=== PATIENT | female | born 1950 | race Caucasian/White ===

== ENCOUNTER → 2019-08-06 12:58 | Outpatient (CLI) | payer MEDICARE, SELFPAY ==
--- NOTE | 2019-08-06 13:11 | MRI_ITS ---
STUDY: MRI LUMBAR SPINE WITHOUT CONTRAST REASON FOR EXAM: Female, 68 years old. Radiculopathy. TECHNIQUE: Standardized fat and water weighted pulse sequences were obtained in the sagittal and axial planes. COMPARISON: None FINDINGS: T12-L1: Normal endplates. Normal disc height, hydration and morphology. Normal bilateral facet joints. Normal central canal and bilateral lateral recesses. Normal bilateral intervertebral neural foramina. Normal lumbar lordosis. There is no substantial scoliosis. Normal conus medullaris that terminates at the L1 level. L1-2: Small right para midline disc herniation impinging on the right L2 nerve root. Normal bilateral facet joints. Normal central canal and bilateral lateral recesses. Normal bilateral intervertebral neural foramina. L2-3: Endplate spondylosis. Decreased disc height and small circumferential disc bulge. Degenerative changes of the bilateral facet joints. Mild narrowing of the central canal and bilateral intervertebral neural foramina. L3-4: Endplate spondylosis. Decreased disc height and small circumferential disc bulge. Degenerative changes of the bilateral facet joints. Mild narrowing of the central canal and bilateral intervertebral neural foramina. L4-5: Endplate spondylosis. Decreased disc height and small circumferential disc bulge. Degenerative changes of the bilateral facet joints. Mild narrowing of the central canal and bilateral intervertebral neural foramina. L5-S1: Transition anomaly most likely represents sacralization of L5. There is rudimentary disc at L5-S1. Normal bilateral facet joints. Normal central canal and bilateral lateral recesses. Normal bilateral intervertebral neural foramina. Normal visualized sacral ala. Normal visualized paraspinous soft tissue structures. MRI/Spine Lumbar (Routine) IMPRESSION: Multilevel degenerative changes, as described above. Small right para midline disc herniation at L1-2 impinging on the right L2 nerve root. Electronically Signed: Patti Mitchell, at 7:54 EDT Tel , Service support ,
== END ==
PROVIDERS: Family Provider Physician Assistant; PCP Physician Assistant
DX: M54.16 Radiculopathy, lumbar region (principal)
CPT/HCPCS: 72148

== ENCOUNTER → 2022-10-29 | Outpatient (CLI) | payer MEDICARE, SELFPAY ==
--- NOTE | 2022-10-29 07:38 | MRI_ITS ---
HISTORY: Radiculopathy, extreme pain lower back down right leg, increased pain past 8 years TECHNIQUE: Multiplanar and multisequence MR images of the lumbar spine were obtained without intravenous contrast. 128 images. COMPARISON: 08/06/2019. FINDINGS: VERTEBRAE: Vertebral body heights maintained. Mild degenerative bone marrow endplate changes of L3-4, L4-5, and L5-S1. ALIGNMENT: No significant anterior or posterior subluxation. CONUS: Normal morphology and position of the conus medullaris at L1, consistent with the prior numbering of the lumbar spine. INTERVERTEBRAL DISCS: T12-L1: No significant posterior disc protrusion, central canal stenosis, or foraminal narrowing based on the sagittal images. L1-2, L2-3: No significant posterior disc protrusion, central canal stenosis, or foraminal narrowing. L3-4: Mild posterior disc bulge osteophyte complex with facet arthropathy resulting in minimal narrowing of the thecal sac and mild bilateral foraminal narrowing. L4-5: Mild disc bulge eccentric to the left with facet arthropathy resulting in mild central canal stenosis and mild bilateral foraminal narrowing with abutment of the left L4 nerve root. Probable small right paracentral extruded inferiorly migrated component entering the left lateral recess with mild impingement of the right L5 nerve root. L5-S1: Minimal disc bulge with facet arthropathy resulting in minimal narrowing of the thecal sac and mild left greater than right foraminal narrowing. S1-2: Rudimentary disc with transitional lumbosacral anatomy. SOFT TISSUES: No paraspinal fluid collections. MRI/Spine Lumbar (Routine) IMPRESSION: Mild multilevel degenerative disc disease with mild central canal stenosis, bilateral foraminal narrowing, and bilateral nerve root impingement/abutment at L4-5. Transitional lumbosacral anatomy. Electronically Signed: Tammy Wong MD at 12:22 EST ,
== END | disposition home or self-care (01) ==
PROVIDERS: PCP Physician Assistant; Referring Provider Nurse Practitioner Family; Visit Provider Nurse Practitioner Family
DX: M46.96 Unspecified inflammatory spondylopathy, lumbar region (principal); M51.37 Other intervertebral disc degeneration, lumbosacral region; M54.17 Radiculopathy, lumbosacral region; M47.817 Spondylosis without myelopathy or radiculopathy, lumbosacral region; M48.07 Spinal stenosis, lumbosacral region
CPT/HCPCS: 72148